=== PATIENT | female | born 1960 | race Caucasian/White ===

== ENCOUNTER → 2017-05-06 | Outpatient (CLI) | payer BC ==
--- NOTE | 2017-05-06 12:31 | RADIOLOGY REPORT (SQ) ---
EXAM DESCRIPTION: VENOUS UNILATERAL LOWER COMPLETED DATE/TIME: 05/06/2017 12:24 pm REASON FOR STUDY: LLE PAIN M79.662 PAIN IN LEFT LOWER LEG COMPARISON: None. TECHNIQUE: Dynamic and static parker scale and color images acquired of the left leg venous system. Se lected spectral images acquired with additional compression and augmentation maneuvers. The contralat eral common femoral vein and saphenofemoral junction were also imaged. Images stored on PACS. LIMITATIONS: None. FINDINGS: COMMON FEMORAL: Normal phasicity, compression and augmentation. No visualized echogenic ma terial on parker scale. No defects on color images. FEMORAL: Normal compression and augmentation. No visualized echogenic material on parker scale. No defe cts on color images. POPLITEAL: Normal compression, augmentation. No visualized echogenic material on parker scale. No defec ts on color images. CALF VESSELS: Normal compression, augmentation. No visualized echogenic material on parker scale. No de fects on color images. GSV and SSV: Normal compression, augmentation. No visualized echogenic material on parker scale. No def ects on color images. ANY DEEP VENOUS INSUFFICIENCY: Not evaluated. ANY EVIDENCE OF POPLITEAL CYST: No. OTHER: No other significant finding. CONTRALATERAL COMMON FEMORAL VEIN AND SAPHENOFEMORAL JUNCTION: Normal phasicity, compression and augmentation. No visualized echogenic material on parker scale. No de fects on color images. IMPRESSION: NO EVIDENCE DVT OR SVT IN THE LEFT LEG. TECHNICAL DOCUMENTATION: JOB ID: [id number] [employer]- All Rights Reserved
== END ==
LOC: SP 10:47
PROVIDERS: ATTEND Nurse Practitioner Family
DX: M79.662 Pain in left lower leg (principal)
CPT/HCPCS: 93971

== ENCOUNTER 2017-08-28 13:51 | Emergency (ER) | payer OTHER, BC ==
[2017-08-28] MEDS ORDERED: ACETAMINOPHEN 325 MG TABLET PO ONE (15:34)
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
[2017-08-28 17:23] VITALS: BP 140/75
== END 2017-08-28 17:23 | disposition home or self-care (01) ==
LOC: ER 13:51
DX: S20.20XA Contusion of thorax, unspecified, initial encounter (principal); R07.81 Pleurodynia; V43.52XA Car driver injured in collision with other type car in traffic accident, initial encounter; I10 Essential (primary) hypertension; J45.909 Unspecified asthma, uncomplicated
CPT/HCPCS: 82962; 99284

== ENCOUNTER 2018-01-08 20:54 | Emergency (ER) | payer BC, OTHER ==
--- NOTE | 2018-01-08 23:17 | ER Document Report ---
ED Medical Screen (RME) - General Chief Complaint: Jaw Pain Stated Complaint: JAW PAIN Time Seen by Provider: 01/08/18 23:15 Mode of Arrival: Wheelchair Information source: Patient Notes: Patient states that today she felt like her jaw was locking. Patient complains of left lower jaw tenderness. Patient without any crepitus to TMJ joint. Patient states earlier this evening around 5 PM she felt dizzy. Patient also complains of a funny sensation that she describes as a numb feeling to the fingertips of her left hand that started around 10 PM this evening. Patient denies any headache chest pain or dyspnea. hx: Hypertension, hysterectomy I have greeted and performed a rapid initial assessment of this patient. A comprehensive ED assessment and evaluation of the patient, analysis of test results and completion of the medical decision making process will be conducted by additional ED providers. TRAVEL OUTSIDE OF THE [place] IN LAST 30 DAYS: No - Related Data Allergies/Adverse Reactions: No Known Allergies Allergy (Verified 01/08/18 21:24) Past Medical History - Past Medical History Cardiac Medical History: Reports: Hx Hypertension Pulmonary Medical History: Reports: Hx Asthma Renal/ Medical History: Denies: Hx Peritoneal Dialysis Past Surgical History: Reports: Hx Cholecystectomy, Hx Hysterectomy - Immunizations Hx Diphtheria, Pertussis, Tetanus Vaccination: Yes Physical Exam - Vital signs Vitals: Temp Pulse Resp BP Pulse Ox 97.8 F 73 16 153/83 H 98 01/08/18 21:39 01/08/18 21:39 01/08/18 21:39 01/08/18 21:39 01/08/18 21:39 - HEENT Head: Other - No TMJ joint tenderness - Cardiovascular Rhythm: Regular Heart sounds: S1 appreciated, S2 appreciated Course - Vital Signs Vital signs: Temp Pulse Resp BP Pulse Ox 97.8 F 73 16 153/83 H 98 01/08/18 21:39 01/08/18 21:39 01/08/18 21:39 01/08/18 21:39 01/08/18 21:39
[2018-01-08 23:34] LABS: ABSOLUTE BASOPHILS # (AUTO) 0.2 10^3/uL (0.0-0.2); ABSOLUTE EOSINOPHILS # (AUTO) 0.3 10^3/uL (0.0-0.6); ABSOLUTE LYMPHOCYTES (AUTO) 3.4 10^3/uL (0.5-4.7); ABSOLUTE MONOCYTES (AUTO) 0.8 10^3/uL (0.1-1.4); ABSOLUTE NEUT (AUTO) 3.7 10^3/uL (1.7-8.2); BASOPHILS % (AUTO) 2.3 % (0-2); EOSINOPHILS % (AUTO) 3.6 % (0-6); HEMATOCRIT 38.8 % (36.0-47.0); HEMOGLOBIN 13.3 g/dL (12.0-15.5); LYMPHOCYTES % (AUTO) 40.4 % (13-45); MEAN CORPUSCULAR HEMOGLOBIN 30.1 pg (27.0-33.4); MEAN CORPUSCULAR HGB CONC 34.3 g/dL (32.0-36.0); MEAN CORPUSCULAR VOLUME 88 fl (80-97); MONOCYTES % (AUTO) 9.9 % (3-13); PLATELET COUNT 243 10^3/uL (150-450); RED BLOOD COUNT 4.42 10^6/uL (3.72-5.28); RED CELL DISTRIBUTION WIDTH 13.9 % (11.5-14.0); SEGMENTED NEUTROPHILS % (AUTO) 43.8 % (42-78); TOTAL CELLS COUNTED % (AUTO) 100 %; WHITE BLOOD COUNT 8.4 10^3/uL (4.0-10.5)
[2018-01-08 23:47] LABS: ALANINE AMINOTRANSFERASE 40 U/L (9-52); ALBUMIN 4.2 g/dL (3.5-5.0); ALKALINE PHOSPHATASE 77 U/L (38-126); ANION GAP 8 (5-19); ASPARTATE AMINO TRANSFERASE 32 U/L (14-36); BILIRUBIN,DIRECT 0.1 mg/dL (0.0-0.4); BILIRUBIN,TOTAL 0.2 mg/dL (0.2-1.3); BLOOD UREA NITROGEN 16 mg/dL (7-20); CALCIUM 9.7 mg/dL (8.4-10.2); CARBON DIOXIDE 35 mmol/L (22-30); CHLORIDE 97 mmol/L (98-107); CREATINE KINASE 110 U/L (30-135); GLUCOSE 115 mg/dL (75-110); POTASSIUM 3.2 mmol/L (3.6-5.0); SODIUM 140.4 mmol/L (137-145); TOTAL PROTEIN 7.5 g/dL (6.3-8.2)
--- NOTE | 2018-01-08 23:47 | RADIOLOGY REPORT (SQ) ---
EXAM DESCRIPTION: CHEST PA/LAT CLINICAL HISTORY: 57 years, Female, dizziness, jaw pain COMPARISON: None. NUMBER OF VIEWS: 2 FINDINGS: Normal lung volume, clear parenchyma, normal cardiac silhouette, and intact bony thorax. Right upper abdominal clips. IMPRESSION: No acute cardiopulmonary findings.
[2018-01-08 23:58] LABS: CREATINE KINASE MB 0.78 ng/mL (<4.55)
[2018-01-08 23:59] LABS: TROPONIN I < 0.012 ng/mL
--- NOTE | 2018-01-09 00:41 | ER Document Report ---
ED General - General Chief Complaint: Jaw Pain Stated Complaint: JAW PAIN Time Seen by Provider: 01/08/18 23:15 Mode of Arrival: Wheelchair Notes: Patient is a 57-year-old female that comes emergency department for chief complaint of a pain that has developed over the past day underneath her left jaw. She states it hurts when she moves it, however she denies throat pain, fever, or injury. She states she frequently gets ear pain, she has back problems with vertigo, she states she had a little bit of vertigo earlier today but this has resolved now. She also states that while she was sitting in the waiting room she had her arm on the rest and her hands started tingling, no tingling now. No chest pain or shortness of breath. Past medical history of hypertension, treated, hysterectomy, cholecystectomy. TRAVEL OUTSIDE OF THE [place] IN LAST 30 DAYS: No - Related Data Allergies/Adverse Reactions: No Known Allergies Allergy (Verified 01/08/18 21:24) Past Medical History - General Information source: Patient - Social History Smoking Status: Current Some Day Smoker Chew tobacco use (# tins/day): No Frequency of alcohol use: Rare Drug Abuse: None Lives with: Family Family History: None Patient has suicidal ideation: No Patient has homicidal ideation: No - Past Medical History Cardiac Medical History: Reports: Hx Hypertension Pulmonary Medical History: Reports: Hx Asthma Renal/ Medical History: Denies: Hx Peritoneal Dialysis Past Surgical History: Reports: Hx Cholecystectomy, Hx Hysterectomy - Immunizations Hx Diphtheria, Pertussis, Tetanus Vaccination: Yes Hx Pneumococcal Vaccination: 10/14/09 Review of Systems - Review of Systems Constitutional: No symptoms reported EENT: See HPI Cardiovascular: See HPI Respiratory: No symptoms reported Gastrointestinal: No symptoms reported Genitourinary: No symptoms reported Female Genitourinary: No symptoms reported Musculoskeletal: See HPI Skin: No symptoms reported Hematologic/Lymphatic: No symptoms reported Neurological/Psychological: See HPI Physical Exam - Vital signs Vitals: Temp Pulse Resp BP Pulse Ox 97.8 F 73 16 153/83 H 98 01/08/18 21:39 01/08/18 21:39 01/08/18 21:39 01/08/18 21:39 01/08/18 21:39 Interpretation: Normal - General General appearance: Appears well In distress: None - HEENT Head: Normocephalic, Atraumatic Eyes: Normal Conjunctiva: Normal Extraocular movements intact: Yes Eyelashes: Normal Pupils: PERRL Ears: Normal External canal: Normal Tympanic membrane: Normal Sinus: Normal Nasal: Normal Mouth/Lips: Normal Mucous membranes: Normal Pharynx: Normal. No: Erythema, Exudate, Tonsillar hypertrophy, Uvular edema Neck: Other - There is a tender submandibular lymph node on the left side, patient does identify this area as the area of pain, no swelling of the face or jaw otherwise, normal TMJ, unremarkable ENT exam otherwise - Respiratory Respiratory status: No respiratory distress Chest status: Nontender Breath sounds: Normal Chest palpation: Normal - Cardiovascular Rhythm: Regular Heart sounds: Normal auscultation Murmur: No - Abdominal Inspection: Normal Distension: No distension Bowel sounds: Normal Tenderness: Nontender Organomegaly: No organomegaly - Back Back: Normal, Nontender - Extremities General upper extremity: Other - Mild tenderness at the cubital tunnel on the left side, when this is pressed patient states she feels numbness in her fingers. Normal sensation and distal neurovascular exam otherwise, normal upper extremity exam otherwise General lower extremity: Normal inspection, Nontender, Normal ROM, Normal strength - Neurological Neuro grossly intact: Yes Cognition: Normal Orientation: AAOx4 Xochitl Coma Scale Eye Opening: Spontaneous Xochitl Coma Scale Verbal: Oriented Xochitl Coma Scale Motor: Obeys Commands Xochitl Coma Scale Total: 15 Speech: Normal Motor strength normal: LUE, RUE, LLE, RLE Sensory: Normal - Psychological Associated symptoms: Normal affect, Normal mood - Skin Skin Temperature: Warm Skin Moisture: Dry Skin Color: Normal Course - Re-evaluation Re-evalutation: EKG sinus rhythm with no T-wave inversions or ST segment changes in consecutive leads. Chest x-ray is normal. CBC, chemistry, cardiac enzymes unremarkable except for mild hypokalemia. Patient with a palpable painful lymph node in the submandibular area, however this is not inflamed, indurated, erythematous, or hot to the touch. No vertigo symptoms currently although patient states she is out of her Ativan that she was prescribed for it. She states that she takes it very rarely and only when he gets really bad. Patient has reproducible numbness by palpation over the cubital tunnel. Clinical evaluation is not suggestive of ACS, patient is asking for medications and to leave. Patient will be treated with prednisone for her jaw, nerve, and vertigo symptoms along with meclizine and Ativan. Patient has good primary care follow-up. Patient states she will return immediately if she develops worsening symptoms, chest pain, vomiting, fever, dizziness, etc. Patient is with daughter who is driving. - Vital Signs Vital signs: Temp Pulse Resp BP Pulse Ox 97.2 F 66 18 139/82 H 97 01/09/18 00:55 01/09/18 00:55 01/09/18 00:55 01/09/18 00:55 01/09/18 00:55 - Laboratory Result Diagrams: 01/08/18 23:20 01/08/18 23:20 Laboratory results interpreted by me: 01/08/18 01/08/18 23:20 23:20 Basophils % 2.3 H Potassium 3.2 L Chloride 97 L Carbon Dioxide 35 H Glucose 115 H Discharge - Discharge Clinical Impression: Jaw pain, Vertigo Condition: Stable Disposition: HOME, SELF-CARE Additional Instructions: Evaluation and to this point shows mildly low potassium but otherwise is unremarkable. Increase potassium in your diet. Take prednisone as prescribed both for the lymph node and for the vertigo symptoms, take the meclizine as prescribed, only take the Ativan if needed for bad vertigo symptoms. Follow-up with your provider closely for additional evaluation and management. Return if you worsen including vomiting, headache, fever, chest pain, or any other concerning or worsening symptoms. Prescriptions: Lorazepam [Ativan 1 mg Tablet] 1 mg PO Q4 PRN #8 tab PRN Reason: Meclizine HCl [Bonine] 25 mg PO TID #24 tab.chew Prednisone [Deltasone 10 mg Tablet] 10 mg PO ASDIR PRN #21 tablet PRN Reason: Referrals: MORRIS ERICKSON PA-C [Primary Care Provider] - Follow up as needed
[2018-01-09 00:56] VITALS: BP 139/82
--- NOTE | 2018-01-09 18:14 | EKG REPORT ---
SEVERITY:- NORMAL ECG - SINUS RHYTHM : Confirmed by: George Patel MD 09-Jan-2018 18:13:00
== END 2018-01-09 01:11 | disposition home or self-care (01) ==
LOC: ER 20:54
DX: R68.84 Jaw pain (principal); R42 Dizziness and giddiness; R20.0 Anesthesia of skin; I10 Essential (primary) hypertension; Z90.49 Acquired absence of other specified parts of digestive tract; Z90.710 Acquired absence of both cervix and uterus; F17.200 Nicotine dependence, unspecified, uncomplicated; J45.909 Unspecified asthma, uncomplicated; Z79.899 Other long term (current) drug therapy
CPT/HCPCS: 36415; 71046; 80053; 82550; 82553; 83735; 84484; 85025; 93005; 93010; 99284

== ENCOUNTER → 2018-09-26 | Outpatient (CLI) | payer BC ==
--- NOTE | 2018-09-26 14:47 | WOMENS IMAGING REPORT ---
EXAM DESCRIPTION: BILAT SCREENING MAMMO W/CAD COMPLETED DATE/TIME: 09/26/2018 9:24 am REASON FOR STUDY: BILATERAL SCREENING MAMMO /Z12.31 Z12.31 ENCNTR SCREEN MAMMOGRAM FOR MALIGNANT NE OPLASM OF ALFREDO COMPARISON: 2014 TECHNIQUE: Standard craniocaudal and mediolateral oblique views of each breast recorded using [employer] l acquisition. LIMITATIONS: None. FINDINGS: No masses, calcifications or architectural distortion. No areas of suspicion. Read with the assistance of CAD. .[facility] - R2 Cenova Version 1.3 .[facility] - R2 Cenova Version 1.3 .[facility] - R2 Cenova Version 2.4 .[facility] [place] - R2 Cenova Version 2.4 .[facility] - R2 Shactor Version 9.2 IMPRESSION: NORMAL MAMMOGRAM. BIRADS 1. BREAST DENSITY: b. There are scattered areas of fibroglandular density. BIRAD: 1 NEGATIVE RECOMMENDATION: ROUTINE SCREENING Please continue yearly bilateral screening mammography/tomosynthesis in September 2019 COMMENT: The patient has been notified of the results by letter per SA requirements. Additional no tification policies are in place for contacting patient with suspicious or incomplete findings. Quality ID #[id number]: The [employer] recommends an annual screening mammogram for women aged 40 years or over. This facility utilizes a reminder system to ensure that all patients receive reminder letters, and/or direct phone calls for appointments. This includes reminders for routine scr eening mammograms, diagnostic mammograms, or other Breast Imaging Interventions when appropriate. Th is patient will be placed in the appropriate reminder system. The [employer] (ACR) has developed recommendations for screening MRI of the breast s in certain patient populations, to be used in conjunction with mammography. Breast MRI surveillanc e may be appropriate for women with more than 20% lifetime risk of developing breast cancer as deter mined by genetic testing, significant family history of the disease, or history of mantle radiation f or Hodgkins Disease. ACR Practice Guidelines 2008. TECHNICAL DOCUMENTATION: FINDING NUMBER: (1) ASSESSMENT: (1) JOB ID: [id number] 2010 [employer]- All Rights Reserved Reading location - IP/workstation name: [facility]
== END ==
LOC: WI 08:58
PROVIDERS: ATTEND Physician Assistant
DX: Z12.31 Encounter for screening mammogram for malignant neoplasm of breast (principal)
CPT/HCPCS: 77067

== ENCOUNTER 2019-05-02 13:23 | Emergency (ER) | payer BC ==
[2019-05-02 13:36] VITALS: BP 122/77
[2019-05-02] MEDS ORDERED: KETOROLAC TROMETHAMINE INJ/PF 30 MG/1 ML SDV IM ONE (13:52)
--- NOTE | 2019-05-02 13:56 | ER Document Report ---
HPI - HPI Time Seen by Provider: 05/02/19 13:42 Pain Level: 3 Notes: Patient is a 66-year-old female with a history of chronic knee pain and HTN who presents complaining of ongoing knee pain for years. Patient states that she was told she has arthritis and has had injections into her knee previously. She has not seen orthopedic provider recently. Patient states that she does continue to have medial knee pain that does not radiate. She does not take any medicines for her symptoms counter meds. She has not noticed any redness or swelling. She is able to ambulate, but does have a limp on occasion. Denies any new injury. No history of kidney disease, diabetes, or dialysis. Denies any headache, fever, URI, sore throat, chest pain, palpitations, syncope, cough, shortness of breath, wheeze, dyspnea, abdominal pain, nausea/vomiting/diarrhea, urinary retention, dysuria, hematuria, back pain, loss of control of bowel or bladder, numbness/tingling, saddle anesthesia, muscle paralysis/weakness, or rash. - ROS Systems Reviewed and Negative: Yes All other systems reviewed and negative - REPRODUCTIVE Reproductive: DENIES: : Past Medical History - Social History Smoking Status: Unknown if Ever Smoked Family History: None - Past Medical History Cardiac Medical History: Reports: Hx Hypertension Pulmonary Medical History: Reports: Hx Asthma Renal/ Medical History: Denies: Hx Peritoneal Dialysis Past Surgical History: Reports: Hx Cholecystectomy, Hx Hysterectomy - Immunizations Hx Diphtheria, Pertussis, Tetanus Vaccination: Yes Hx Pneumococcal Vaccination: 10/14/09 Vertical Provider Document - CONSTITUTIONAL Agree With Documented VS: Yes Notes: PHYSICAL EXAMINATION: GENERAL: Well-appearing, well-nourished and in no acute distress. LUNGS: Breath sounds clear to auscultation bilaterally and equal. No wheezes rales or rhonchi. HEART: Regular rate and rhythm without murmurs, rubs, gallops. Musculoskeletal: Lt knee: No obvious swelling, ecchymosis, effusion, or deformity. + crepitus. FROM to passive/active and flexion >90 w/o difficulty or tenderness. Strength 5+/5. N/V intact distal. No bony tenderness. Ligamentous grossly stable, limited exam with larger leg size. Ashlyn grossly negative. Patellar grind negative. No calf tenderness. Extremities: No cyanosis, clubbing, or edema b/l. Peripheral pulses 2+. Capillary refill less than 3 seconds. Aden neg b/l. NEUROLOGICAL: Normal speech, normal gait. Normal sensory, motor exams PSYCH: Normal mood, normal affect. SKIN: Warm, Dry, normal turgor, no rashes or lesions noted. - INFECTION CONTROL TRAVEL OUTSIDE OF THE [place] IN LAST 30 DAYS: No Course - Re-evaluation Re-evalutation: 05/02/19 13:55 Patient is an afebrile, well-hydrated, 58-year-old female who presents to the ED with left knee pain which I suspect to be arthritis. Vitals are acceptable without any significant tachycardia, tachypnea, or hypoxia. PE is otherwise unremarkable for any neurovascular compromise, obvious tendon/ligament rupture, obvious fracture/dislocation, septic joint. [place] knee rules negative. Toradol given IM. Patient is nontoxic-appearing. Patient is able to ambulate and weight-bear. No other labs or imaging warranted at this time based on H&P. Conservative measures otherwise for symptoms. Recheck with your PCM in 3-5 days. Consider consult orthopedics. Return to the ED with any worsening/concerning symptoms otherwise as reviewed in discharge. Patient is in agreement. - Vital Signs Vital signs: Temp Pulse Resp BP Pulse Ox 97.8 F 77 16 122/77 97 05/02/19 13:35 05/02/19 13:35 05/02/19 13:35 05/02/19 13:35 05/02/19 13:35 Discharge - Discharge Clinical Impression: Chronic pain of left knee Condition: Stable Disposition: HOME, SELF-CARE Additional Instructions: Rest, Ice, Compression, Elevation Tylenol/ibuprofen as needed Light stretches daily Strength exercises as able Moist heat and massage may help F/u with your PCP in 3-5 days for a recheck Schedule an appointment with orthopedics for further evaluation and management Return to the ED with any worsening symptoms and/or development of fever, headache, chest pain, palpitations, syncope, shortness of breath, trouble breathing, abdominal pain, n/v/d, muscle weakness/paralysis, numbness/tingling, swelling, redness, or other worsening symptoms that are concerning to you. Prescriptions: Diclofenac Sodium [Voltaren] 4 gm TP QID PRN #100 gel..gm. PRN Reason: Meloxicam [Mobic 7.5 Mg Tablet] 7.5 mg PO BID PRN #30 tablet PRN Reason: Referrals: MORRIS ERICKSON PA-C [Primary Care Provider] - Follow up as needed [facility] [Provider Group] - Follow up as needed
== END 2019-05-02 14:13 | disposition home or self-care (01) ==
LOC: ER 13:23
DX: M25.562 Pain in left knee (principal); G89.29 Other chronic pain; I10 Essential (primary) hypertension; J45.909 Unspecified asthma, uncomplicated
CPT/HCPCS: 99283; 96374; J1885

== ENCOUNTER 2020-02-20 12:55 | Emergency (ER) | payer BC ==
[2020-02-20] MEDS ORDERED: IBUPROFEN 800 MG TABLET PO ONE (13:24)
--- NOTE | 2020-02-20 13:29 | ER Document Report ---
HPI - HPI Patient complains to provider of: Neck pain Time Seen by Provider: 02/20/20 13:15 Onset: This morning Onset/Duration: Persistent Quality of pain: Achy Context: 59-year-old female presents emergency department with complaints of right-sided neck pain. Reports she woke up hurting today. After she denies any kind of trauma. She does admit later to jumping on the trampoline yesterday. She reports she just woke up and her right side of her neck was hurting. Denies vertebral tenderness. Denies recent trauma. Denies fever vomiting diarrhea. Reports when she turns her head right or left her neck hurts. Associated Symptoms: None Exacerbated by: Movement Relieved by: Denies Similar symptoms previously: No Recently seen / treated by doctor: No - REPRODUCTIVE Reproductive: DENIES: : Past Medical History - General Information source: Patient - Social History Smoking Status: Unknown if Ever Smoked Cigarette use (# per day): No Frequency of alcohol use: None Drug Abuse: None Lives with: Family Family History: None Patient has suicidal ideation: No Patient has homicidal ideation: No - Past Medical History Cardiac Medical History: Reports: Hx Hypertension Pulmonary Medical History: Reports: Hx Asthma Renal/ Medical History: Denies: Hx Peritoneal Dialysis Past Surgical History: Reports: Hx Cholecystectomy, Hx Hysterectomy - Immunizations Hx Diphtheria, Pertussis, Tetanus Vaccination: Yes Hx Pneumococcal Vaccination: 10/14/09 Vertical Provider Document - CONSTITUTIONAL Agree With Documented VS: Yes Exam Limitations: No Limitations - INFECTION CONTROL TRAVEL OUTSIDE OF THE [place] IN LAST 30 DAYS: No - HEENT HEENT: Atraumatic, Normal ENT Exam, Normocephalic. negative: Conjuctival Injection, Pharyngeal Erythema, Tympanic Membrane Red - NECK Neck: Normal Inspection - denies vertebral tenderness, chin to chest without c/o pain, Supple, Other - pain to the right side, trapezius area with movement. No vertebral tenderness. No erythema no swelling no warmth no weakness - RESPIRATORY Respiratory: Breath Sounds Normal, No Respiratory Distress - CARDIOVASCULAR Cardiovascular: Regular Rate, Regular Rhythm - GI/ABDOMEN Gastrointestinal: Abdomen Soft - BACK Back: Normal Inspection - MUSCULOSKELETAL/EXTREMETIES Musculoskeletal/Extremeties: TYSON ANDERSON - NEURO Level of Consciousness: Awake, Alert, Appropriate Motor/Sensory: No Motor Deficit - DERM Integumentary: Warm, Dry Course - Re-evaluation Re-evalutation: 02/20/20 Patient was instructed on wryneck. Instructed on muscle relaxers ibuprofen. Instructed on the importance of stretches and massage. She was instructed to return the emergency department immediately for worsening symptoms concerns. She verbalized understanding to all instructions. - Vital Signs Vital signs: Temp Pulse Resp BP Pulse Ox 97.7 F 69 16 156/81 H 97 02/20/20 12:59 02/20/20 12:59 02/20/20 12:59 02/20/20 12:59 02/20/20 12:59 Discharge - Discharge Clinical Impression: Wry neck Condition: Stable Disposition: HOME, SELF-CARE Instructions: Ibuprofen (General) ([facility]), Muscle Relaxers ([facility]), Torticollis ([facility]) Additional Instructions: *You have been evaluated for neck pain,wry neck *Take muscle relaxer as prescribed *Take ibuprofen as prescribed *Follow up with a primary care provider within one week for recheck *Return to the emergency department for worsening condition, concerns, needs Monitor your blood pressure. Your blood pressure was elevated today. This may be because you were anxious, in pain or because you need medication. It is important to follow up with your primary care provider for full evaluation. Prescriptions: Cyclobenzaprine HCl [Flexeril 10 Mg Tablet] 10 mg PO TID #10 tablet Ibuprofen [Motrin 800 mg Tablet] 800 mg PO TID #15 tablet Forms: Elevated Blood Pressure Referrals: MORRIS ERICKSON PA-C [Primary Care Provider] - Follow up as needed
[2020-02-20 13:34] VITALS: BP 142/58
== END 2020-02-20 13:32 | disposition home or self-care (01) ==
LOC: ER 12:55
DX: M43.6 Torticollis (principal); M54.2 Cervicalgia; I10 Essential (primary) hypertension; J45.909 Unspecified asthma, uncomplicated
CPT/HCPCS: 99283

== ENCOUNTER 2020-10-15 19:58 | Emergency (ER) | payer BC ==
[2020-10-15 20:12] VITALS: BP 124/65
--- NOTE | 2020-10-15 20:33 | ER Document Report ---
ED Medical Screen (RME) - General Chief Complaint: Blood Pressure Problem Stated Complaint: HEADACHE/POSSIBLE FEVER Time Seen by Provider: 10/15/20 20:29 Primary Care Provider: MORRIS ERICKSON PA-C [Primary Care Provider] - Follow up as needed Notes: Patient presents complaining of not feeling well today. Patient reports temperature of 100.7. Patient does complain of frontal headache pain. Patient denies any cough, nausea vomiting or diarrhea. Patient denies any urinary symptoms. Patient states when she has felt like this in the past she had a low potassium. Patient has a history of hypertension. I have greeted and performed a rapid initial assessment of this patient. A comprehensive ED assessment and evaluation of the patient, analysis of test results and completion of the medical decision making process will be conducted by additional ED providers. TRAVEL OUTSIDE OF THE [place] IN LAST 30 DAYS: No - Related Data Allergies/Adverse Reactions: No Known Allergies Allergy (Verified 05/02/19 13:32) Past Medical History - Past Medical History Cardiac Medical History: Reports: Hx Hypertension Pulmonary Medical History: Reports: Hx Asthma Renal/ Medical History: Denies: Hx Peritoneal Dialysis Past Surgical History: Reports: Hx Cholecystectomy, Hx Hysterectomy - Immunizations Hx Diphtheria, Pertussis, Tetanus Vaccination: Yes Physical Exam - Vital signs Vitals: Temp Pulse Resp BP Pulse Ox 98.7 F 59 L 19 124/65 97 10/15/20 20:11 10/15/20 20:11 10/15/20 20:11 10/15/20 20:11 10/15/20 20:11 - Neurological Neuro grossly intact: Yes Cognition: Normal Xochitl Coma Scale Eye Opening: Spontaneous Xochitl Coma Scale Verbal: Oriented Xochitl Coma Scale Motor: Obeys Commands [place] Coma Scale Total: 15 Course - Vital Signs Vital signs: Temp Pulse Resp BP Pulse Ox 98.7 F 59 L 19 124/65 97 10/15/20 20:11 10/15/20 20:11 10/15/20 20:11 10/15/20 20:11 10/15/20 20:11 Doctor's Discharge - Discharge Referrals: MORRIS ERICKSON PA-C [Primary Care Provider] - Follow up as needed
--- NOTE | 2020-10-15 22:50 | RADIOLOGY REPORT (SQ) ---
CHEST X-RAY 1 VIEW on 10/15/2020 at 10:05 PM CLINICAL INDICATION: Fever COMPARISON: 01/08/2018 FINDINGS: The lungs are clear. Cardiac, hilar and mediastinal contours are within normal limits. Pulmonary vascularity is within normal limits. No bony abnormality is noted. IMPRESSION: No active disease.
[2020-10-16 01:15] LABS: ABSOLUTE LYMPHOCYTES (AUTO) 2.7 10^3/uL (0.5-4.7); ABSOLUTE MONOCYTES (AUTO) 1.8 10^3/uL (0.1-1.4); ABSOLUTE NEUT (AUTO) 11.8 10^3/uL (1.7-8.2); BASOPHILS % (AUTO) 0.3 % (0-2); EOSINOPHILS % (AUTO) 0.1 % (0-6); HEMATOCRIT 37.3 % (36.0-47.0); HEMOGLOBIN 13.2 g/dL (12.0-15.5); LYMPHOCYTES % (AUTO) 16.5 % (13-45); MEAN CORPUSCULAR HEMOGLOBIN 29.6 pg (27.0-33.4); MEAN CORPUSCULAR HGB CONC 35.3 g/dL (32.0-36.0); MEAN CORPUSCULAR VOLUME 84 fl (80-97); MONOCYTES % (AUTO) 10.9 % (3-13); PLATELET COUNT 223 10^3/uL (150-450); RED BLOOD COUNT 4.45 10^6/uL (3.72-5.28); RED CELL DISTRIBUTION WIDTH 14.3 % (11.5-14.0); SEGMENTED NEUTROPHILS % (AUTO) 72.2 % (42-78); TOTAL CELLS COUNTED % (AUTO) 100 %; WHITE BLOOD COUNT 16.3 10^3/uL (4.0-10.5)
[2020-10-16 01:36] LABS: ANION GAP 8 (5-19); BLOOD UREA NITROGEN 30 mg/dL (7-20); CALCIUM 9.1 mg/dL (8.4-10.2); CARBON DIOXIDE 31 mmol/L (22-30); CHLORIDE 94 mmol/L (98-107); GLUCOSE 133 mg/dL (75-110); POTASSIUM 3.6 mmol/L (3.6-5.0)
--- NOTE | 2020-10-16 01:50 | ER Document Report ---
ED General - General Chief Complaint: Fever Stated Complaint: HEADACHE/POSSIBLE FEVER Time Seen by Provider: 10/15/20 20:29 Primary Care Provider: MORRIS ERICKSON PA-C [Primary Care Provider] - Follow up as needed TRAVEL OUTSIDE OF THE [place] IN LAST 30 DAYS: No - HPI Context: Chief Complaint: [Headache, fever] [This is a 59-year-old female presenting with headache and fever. Patient states her symptoms started yesterday, she said she had a temperature 100.7 at home and complained of frontal headache pain. Patient admits she is not compliant with her hypertension medication and does not drink water. Patient states she prefers to drink Dr. Pepper. Patient denies cough, nausea, vomiting diarrhea. Patient denies dysuria or other urinary symptoms. Patient states that when she feels like this she typically has a low potassium. Patient states that this time she is headache free. Patient denies history of COVID-19, known contact with persons positive for COVID-19 or persons under investigation for COVID-19. Patient denies loss of sense of smell or sense of taste. ] History obtained from [patient] Symptoms began:[Yesterday] Onset: [Gradual] Timing: [Gradual] Quality: [Sharp] Intensity: [30] Location: [Head] Radiation: [Denies] [The pain does not migrate to a new location.] Aggravating factors: [none] Relieving factors: [none] [Denies] SOB [Denies] nausea [Denies] vomiting [Denies] sweats Positive fever [Denies] cough [Denies] calf or leg swelling or pain - Related Data Allergies/Adverse Reactions: No Known Allergies Allergy (Verified 05/02/19 13:32) Home Medications: bp med, allergy med Past Medical History - General Information source: Patient - Social History Smoking Status: Never Smoker Family History: None - Past Medical History Cardiac Medical History: Reports: Hx Hypertension Pulmonary Medical History: Reports: Hx Asthma Renal/ Medical History: Denies: Hx Peritoneal Dialysis Past Surgical History: Reports: Hx Cholecystectomy, Hx Hysterectomy - Immunizations Hx Diphtheria, Pertussis, Tetanus Vaccination: Yes Hx Pneumococcal Vaccination: 10/14/09 Review of Systems - Review of Systems Notes: Review of systems as below unless otherwise stated in HPI. CONSTITUTIONAL Positive fever, [No] chills. EYES [No] eye pain. ENT [No] URI symptoms, [No] sore throat, [No] ear pain. CARDIOVASCULAR [No] chest pain, [No] palpitations, [No] edema. RESPIRATORY [No] Cough, [No] SOB, [No] wheezing. GASTROINTESTINAL [No] abdominal pain, [No] nausea, [No] Diarrhea, [No] Vomiting, [No] con stipation, [No] melena, [No] rectal bleeding. GENITOURINARY [No] dysuria, [No] urinary frequency, [No] hematuria, [No] urinary urgency, [No] vaginal discharge, [No] vaginal bleeding. MUSCULOSKELETAL [No] Back pain. SKIN [No] Rash. NEUROLOGIC Positive headache, [No] recent seizures, [No] paralysis,[No] parathesias. ENDOCRINE [No] polyuria. HEMO/LYMPATIC [No] easy brusing PSYCHIATRIC [No] depression. Physical Exam - Vital signs Vitals: Temp Pulse Resp BP Pulse Ox 98.7 F 59 L 19 124/65 97 10/15/20 20:11 10/15/20 20:11 10/15/20 20:11 10/15/20 20:11 10/15/20 20:11 - Notes Notes: CONSTITUTIONAL [Vital signs reviewed, Patient appears comfortable and is sleeping upon this MDs entry into the room. Patient is easily awoken and subsequently alert and oriented X 3, Normal stature.] HEAD [Atraumatic, Normocephalic.] EYES [Eyes are normal to inspection, No discharge from eyes, Extraocular muscles intact, Sclera are normal, Conjunctiva are normal.] ENT [External ears normal to inspection, Nose examination normal, Mouth normal to inspection.] NECK [Normal ROM, No jugular venous distention, No meningeal signs, ] RESPIRATORY CHEST [Chest is nontender, Breath sounds normal, No respiratory distress.] CARDIOVASCULAR [RRR, No murmurs, Normal S1 S2, No rub, No gallop.] ABDOMEN [Abdomen is nontender, No pulsatile masses, No other masses, Bowel sounds normal, No distension, No peritoneal signs, No hernias.] BACK [There is no CVA Tenderness, There is no tenderness to palpation, Normal inspection.] UPPER EXTREMITY [Inspection normal, No cyanosis, No clubbing, No edema, LOWER EXTREMITY [Inspection normal, No cyanosis, No clubbing, No edema, No calf tenderness, NEURO [No focal motor deficits, No focal sensory deficits, Speech normal.] SKIN [Skin is warm, Skin is dry, Skin is normal color.] PSYCHIATRIC [Normal affect. ] Course - Re-evaluation Re-evalutation: 10/16/20 02:18 Results of ED MSE discussed with patient patient's significant other. All questions were answered prior to discharge. Emergency signs and symptoms, reasons to return to the emergency department discussed with patient patient's significant other. - Vital Signs Vital signs: Temp Pulse Resp BP Pulse Ox 98.2 F 59 L 19 124/65 97 10/16/20 01:00 10/15/20 20:11 10/15/20 20:11 10/15/20 20:11 10/15/20 20:11 - Laboratory Results Result Diagrams: 10/16/20 00:58 10/16/20 00:58 Laboratory Results Interpreted: 10/16/20 10/16/20 00:58 00:58 WBC 16.3 H RDW 14.3 H Absolute Neuts (auto) 11.8 H Absolute Monos (auto) 1.8 H Sodium 133.0 L Chloride 94 L Carbon Dioxide 31 H BUN 30 H Est GFR (MDRD) Non-Af 52 L Glucose 133 H Critical Laboratory Results Reviewed: No Critical Results Attending or Supervising Physician who Reviewed Labs: RAMONE RODRIGUEZ IV - Radiology Results Critical Radiology Results Reviewed: No Critical Results Attending or Supervising Physician who Reviewed Radiology: RAMONE RODRIGUEZ IV Discharge - Discharge Clinical Impression: Noncompliance with medication regimen, Subjective fever, Dehydration Acute headache Qualifiers: Headache type: unspecified Intractability: not intractable Qualified Code(s): R51.9 - Headache, unspecified Condition: Stable Disposition: HOME, SELF-CARE Instructions: COVID-19 Guidance for Persons Under Investigation Additional Instructions: Return to the Emergency Department without delay if any worse. HOME CARE INSTRUCTIONS & INFORMATION: Thank you for choosing us for your medical needs. We hope you're satisfied with the care you received. After you leave, you must properly care for your problem and, at the same time, observe its progress. Any condition can change. Some illnesses can change rapidly over hours or days. If your condition worsens, return to the Emergency Department or see your physician promptly. ABOUT YOUR X-RAYS AND EKG'S: If you had an EKG or X-rays taken, they have been read by the Emergency Physician. The X-rays and EKG's will also be read by a Radiologist or Farm Reporter within 24 hours. If discrepancies are noted, you will be notified by telephone. Please be certain the ED has a correct telephone number & address where you can be reached. Also, realize that some fractures or abnormalities do not show up on initial X-rays. If your symptoms continue, see your physician. ABOUT YOUR LABORATORY TEST: If you had laboratory tests, the results have been reviewed by the Emergency Physician. Some test results (for example cultures) may not be available for several days. You will be contacted if any test result shows you need additional treatment. Please be certain the ED has a correct telephone number and address where you can be reached. ABOUT YOUR MEDICATIONS: You will receive instructions on how to take your medi cine on the prescription label you receive. Additional information may be provided by the Pharmacy. If you have questions afterwards, call the ED for clarification or further instructions. Some prescribed medications may cause drowsiness. Do not perform tasks such as driving a car or operating machinery without consulting your Pharmacist. If you feel you need a refill of pain medication, your condition will need re-evaluation. Please do not call for a refill of any medication. ABOUT YOUR SIGNATURE: Signature of this document acknowledges to followin. Understanding that you received emergency treatment and that you may be released before al medical problems are known or treated. Please be certain the ED has a correct phone number & address where you can be reached. 2. Acknowledgement that you will arrange for follow-up care as recommended. 3. Authorization for the Emergency Physician to provide information to your follow-up Physician in order to maximize your care. AT ANY TIME, IF YOUR SYMPTOMS CHANGE SIGNIFICANTLY OR WORSEN OR YOU DEVELOP NEW SYMPTOMS, RETURN TO THE EMERGENCY DEPARTMENT IMMEDIATELY FOR RE-EVALUATION. OUR GOAL IS TO PROVIDE EXCELLENT MEDICAL CARE! WE HOPE THAT WE HAVE MET YOUR EXPECTATIONS DURING YOUR EMERGENCY DEPARTMENT VISIT AND THAT YOU FEEL YOU HAVE RECEIVED EXCELLENT CARE! Referrals: MORRIS ERICKSON PA-C [Primary Care Provider] - Follow up as needed
[2020-10-16 01:54] LABS: A TYPE INFLUENZA AG NEGATIVE (NEGATIVE); B INFLUENZA AG NEGATIVE (NEGATIVE)
[2020-10-16] MEDS ORDERED: POTASSIUM CHLORIDE 10 MEQ TABLET.ER PO ONE (02:10)
[2020-10-16] MEDS ORDERED: NORMAL SALINE 1000 ML 1,000 ML IV ONE (02:15)
[2020-10-16 03:42] LABS: APPEARANCE,URINE SLIGHTLY-CLOUDY; BILIRUBIN,URINE NEGATIVE (NEGATIVE); COLOR,URINE YELLOW; GLUCOSE, URINE NEGATIVE (NEGATIVE); KETONES,URINE NEGATIVE (NEGATIVE); LEUKOCYTE ESTERASE,URINE LARGE (NEGATIVE); NITRITE,URINE NEGATIVE (NEGATIVE); PROTEIN,URINE NEGATIVE (NEGATIVE); URINE SPECIFIC GRAVITY 1.013; UROBILINOGEN,URINE NEGATIVE mg/dL (<2.0)
== END 2020-10-16 03:25 | disposition home or self-care (01) ==
LOC: ER 19:58
DX: R51.9 Headache, unspecified (principal); E86.0 Dehydration; I10 Essential (primary) hypertension; J45.909 Unspecified asthma, uncomplicated; Z79.899 Other long term (current) drug therapy; Z91.14 Patient's other noncompliance with medication regimen; Z20.822 Contact with and (suspected) exposure to COVID-19
CPT/HCPCS: 99284; 96360; 36415; 83735; 85025; 80048; 81001; 87804; 71045; U0003; J7030; C9803; 87635